=== PATIENT | female | born 1985 | race Caucasian/White ===

== ENCOUNTER 2024-02-21 06:18 | Day surgery (SDC) | payer SELFPAY ==
[2024-02-15 13:22] VITALS: BMI 25.7
[~2024-02-21 06:18] MED LIST: LACTATED RINGERS SOLUTION 1,000 ML IV SCH; oxyCODONE HCL 5 MG TABLET PO PRN
[2024-02-21] MEDS ORDERED: LIDOCAINE HCL/PF 2% SDV 5ML VIAL ONE (07:08)
[2024-02-21] MEDS ORDERED: ONDANSETRON 4 MG/2 ML VIAL ONE ×2 (07:08→17:16)
[2024-02-21] MEDS ORDERED: ACETAMINOPHEN INJECTION 100 ML ONE (07:12)
[2024-02-21] MEDS ORDERED: SEVOFLURANE 250 ML BTL ONE ×2 (07:12→07:13)
[2024-02-21] MEDS ORDERED: ceFAZolin SODIUM 1 GM VIAL ONE ×4 (07:15→14:26)
[2024-02-21] MEDS ORDERED: DEXAMETHASONE SOD PHOSPHATE 4 MG/1 ML VIAL ONE (07:17)
[2024-02-21] MEDS ORDERED: PROPOFOL 40 ML ONE (07:19)
[2024-02-21] MEDS ORDERED: BUPIVACAINE HCL/PF 2.5 MG/ML - 30 ML VIAL IJ ONE (07:20)
[2024-02-21] MEDS ORDERED: ROCURONIUM BROMIDE 50 MG/5 ML SYRINGE ONE (07:20)
[2024-02-21] MEDS ORDERED: LIDOCAINE 1%/EPI 1:100000 (20 ML MULTI DOSE VIAL) ONE ×2 (07:20→13:32)
[2024-02-21] MEDS ORDERED: BUPIVACAINE HCL/PF 0.25% (2.5MG/ML) 10 ML VIAL ONE (07:20)
[2024-02-21] MEDS ORDERED: SUCCINYLCHOLINE CHLORIDE 200 MG/10 ML SYRINGE ONE (07:20)
[2024-02-21] MEDS ORDERED: MIDAZOLAM HCL 2 MG/2 ML SINGLE DOSE VIAL ONE (07:29)
[2024-02-21] MEDS ORDERED: GENTAMICIN SO4 80 MG/2 ML VIAL ONE ×2 (10:13→12:25)
[2024-02-21] MEDS ORDERED: VANCOMYCIN 1,000 MG VIAL (RESTRICTED TO ID ONLY) ONE (10:13)
[2024-02-21] MEDS ORDERED: POLYMYXIN B SULFATE 500,000 UNIT VIAL ONE (10:19)
[2024-02-21] MEDS ORDERED: ESMOLOL HCL 100,000 MCG/10 ML VIAL ONE (16:27)
[2024-02-21] MEDS: ONDANSETRON 4 MG/2 ML VIAL IVPUSH PRN (17:19)
[2024-02-21] MEDS ORDERED: PROMETHAZINE HCL 25 MG/1 ML VIAL ONE (17:24)
[2024-02-21] MEDS: PROMETHAZINE HCL 25 MG/1 ML VIAL IVPB PRN (17:30)
[2024-02-21 18:24] VITALS: TEMP 97
[2024-02-21] MEDS: PROMETHAZINE HCL 25 MG/1 ML VIAL ONE (18:45)
[2024-02-21 19:45] VITALS: RESP 18
[2024-02-21 20:08] VITALS: BP 93/46; PULSE 74
== END 2024-02-21 21:00 | disposition home or self-care (01) ==
LOC: EDBD 06:18 → FASU 06:18
PROVIDERS: ATTEND Surgery
CPT/HCPCS: 81025; 88305-TC; 94760; J0131; L8600